=== PATIENT | female | born 1970 | race Caucasian/White ===

== ENCOUNTER 2017-09-23 08:57 | Outpatient (CLI) | payer OTHER | END 2017-09-23 20:28 | disposition home or self-care (01) | LOC: SUS 08:57 | PROVIDERS: ATTEND Family Medicine | DX: R10.2 Pelvic and perineal pain (principal) | CPT/HCPCS: 76830-TC; 76857 ==

== ENCOUNTER 2019-09-01 07:20 | Outpatient (CLI) | payer OTHER ==
[2019-09-01 09:10] LABS: BASOPHILS % (AUTO) 0.4 % (0.0-2.0); EOSINOPHILS # (AUTO) 0.1 K/uL (0.0-0.4); EOSINOPHILS % (AUTO) 1.8 % (0.0-4.0); HEMATOCRIT 43.6 % (36-48); HEMOGLOBIN 14.4 g/dL (12.0-16.0); LYMPHOCYTES # (AUTO) 2.3 K/uL (1.0-5.5); MEAN CORPUSCULAR HEMOGLOBIN 29 pg (27-31); MEAN CORPUSCULAR HGB CONC 33 % (32-36); MEAN CORPUSCULAR VOLUME 89 fL (79.0-98.0); MONOCYTES # (AUTO) 0.3 K/uL (0.0-1.0); MONOCYTES % (AUTO) 5.2 % (1.7-9.3); NEUTROPHILS # (AUTO) 3.9 K/uL (1.8-7.7); NEUTROPHILS % (AUTO) 58.6 % (40.0-70.0); PLATELET COUNT (AUTO) 323 K/uL (130-430); RED CELL DISTRIBUTION WIDTH 13.3 % (9.0-15.0); WHITE BLOOD COUNT (AUTO) 6.7 K/uL (4.8-10.8)
[2019-09-01 09:24] LABS: BILIRUBIN,URINE NEGATIVE (NEGATIVE); BLOOD, URINE 3+ (NEGATIVE); CLARITY/URINE SL CLOUDY (CLEAR); COLOR,URINE YELLOW (YELLOW); GLUCOSE,URINE NEGATIVE (NEGATIVE); KETONES,URINE NEGATIVE (NEGATIVE); LEUKOCYTE ESTERASE ,URINE 1+ (NEGATIVE); NITRITE, URINE NEGATIVE (NEGATIVE); PH,URINE 5.5 (5.0-8.0); PROTEIN URINE TRACE (NEGATIVE); UROBILINOGEN,URINE 0.2 (0.2-1.0)
[2019-09-01 09:32] LABS: ALBUMIN 3.9 g/dL (3.4-4.8); CALCIUM 8.9 mg/dL (8.4-11.0); CREATININE 0.65 mg/dL (0.55-1.30); POTASSIUM 4.3 mmol/L (3.5-5.1); TOTAL BILIRUBIN 0.3 mg/dL (0.0-1.0)
[2019-09-01 09:56] LABS: THYROID STIMULATING HORMONE 4.26 uIu/mL (0.36-3.74)
[2019-09-01 10:43] LABS: BACTERIA,URINE FEW /HPF (None Seen); RBC,URINE 50-80 /HPF (0-3)
[2019-09-02 08:11] LABS: ESTRADIOL 13.5 pg/mL (.); FOLLICLE STIMULATION HORMONE 11.7 mIU/mL (.); LUETENIZING HORMONE 6.3 mIU/mL (.)
== END 2019-09-01 20:09 | disposition home or self-care (01) ==
LOC: SUS 07:20
PROVIDERS: ATTEND Family Medicine
DX: Z12.31 Encounter for screening mammogram for malignant neoplasm of breast (principal); R10.9 Unspecified abdominal pain; R94.6 Abnormal results of thyroid function studies
CPT/HCPCS: 36415; 76700-TC; 77067; 80053; 80061; 81000-TC; 82607; 82670; 82672; 83001; 83002; 84403; 84443-TC; 85025

== ENCOUNTER 2019-09-08 08:08 | Outpatient (CLI) | payer OTHER | END 2019-09-08 21:02 | disposition home or self-care (01) | LOC: SUS 08:08 | PROVIDERS: ATTEND Family Medicine | DX: N85.2 Hypertrophy of uterus (principal) | CPT/HCPCS: 76830-TC; 76857 ==

== ENCOUNTER 2019-09-23 06:55 | Day surgery (SDC) | payer OTHER ==
[2019-09-21 18:47] LABS: HCG,QUAL RESULT NEGATIVE (NEGATIVE)
[~2019-09-23] VITALS: Ht 154.9 cm; Wt 64.4 kg
[2019-09-23] MEDS ORDERED: MIDAZOLAM HCL 5 MG/5 ML VIAL ONE ×2 (07:18→07:19)
[2019-09-23] MEDS ORDERED: SIMETHICONE 40 MG/0.6 ML ML ONE (07:19)
[2019-09-23] MEDS ORDERED: MEPERIDINE HCL/PF 100 MG/ML AMP ONE (07:19)
[2019-09-23 10:31] VITALS: BP_SYST 113
== END 2019-09-23 09:30 | disposition home or self-care (01) ==
LOC: SMU 06:55 → SDS 06:55
PROVIDERS: ATTEND Internal Medicine Gastroenterology
DX: K21.9 Gastro-esophageal reflux disease without esophagitis (principal)
CPT/HCPCS: 36415; 43239; 84703; 87081; 88305; 88312; 88313; G0378; J2175; J2250

== ENCOUNTER 2023-01-16 08:33 | Outpatient (CLI) | payer OTHER | END 2023-01-16 20:47 | disposition home or self-care (01) | LOC: SUS 08:33 | PROVIDERS: ATTEND Family Medicine | DX: Z12.39 Encounter for other screening for malignant neoplasm of breast (principal); N60.02 Solitary cyst of left breast; R92.8 Other abnormal and inconclusive findings on diagnostic imaging of breast | CPT/HCPCS: 76642; 77067 ==

== ENCOUNTER 2023-09-29 12:57 | Outpatient (CLI) | payer OTHER | END 2023-09-29 21:11 | disposition home or self-care (01) | LOC: SUS 12:57 | PROVIDERS: ATTEND Family Medicine | DX: N93.9 Abnormal uterine and vaginal bleeding, unspecified (principal) | CPT/HCPCS: 76856 ==